=== PATIENT | female | born 1980 | race African-American/Black ===

== ENCOUNTER 2016-09-10 22:20 | Emergency (ER) | payer OTHER ==
[~2016-09-10] VITALS: Ht 167.6 cm; Wt 133.8 kg
[~2016-09-10 22:20] MED LIST: HYDR-971 PO; LISI1TAB5 PO; LOPE2CAP PO; METO25TA9 PO; NIFE30TA2 PO; OMEP20CA9 PO; PREN1TAB58 PO
[2016-09-10] MEDS ORDERED: METO10TA81 PO (23:19)
--- NOTE | 2016-09-10 23:19 | PHYS DOC ---
Past Medical History Past Medical History: A-Fib, GERD, Hypertension Additional Past Medical Histor: Miscarriages Past Surgical History: Cholecystectomy, , Tonsillectomy, Other Additional Past Surgical Histo: ADNOIDS Alcohol Use: Occasionally Drug Use: None Adult General Chief Complaint Chief Complaint: HEADACHE HPI HPI 36-year-old female with a history of migraines presents with a headache. She describes it as a tightness started off behind her eye and is gone into her moravian region down behind her ear. She describes photophobia and phonophobia. She states she has been nauseous with the headache. She denies any lateralizing neurologic weakness. [] Review of Systems Review of Systems Constitutional: Denies fever or chills [] Eyes: Denies change in visual acuity, redness, or eye pain [] HENT: Denies nasal congestion or sore throat [] Respiratory: Denies cough or shortness of breath [] Cardiovascular: No additional information not addressed in HPI [] GI: Denies abdominal pain, nausea, vomiting, bloody stools or diarrhea [] : Denies dysuria or hematuria [] Musculoskeletal: Denies back pain or joint pain [] Integument: Denies rash or skin lesions [] Neurologic: Per history of present illness [] Endocrine: Denies polyuria or polydipsia [] Current Medications Current Medications Current Medications Medications (Trade) Dose Ordered Sig/Amanda Start Time Stop Time Status Last Admin Dose Admin Diphenhydramine HCl (Benadryl) 25 mg 1X ONCE 09/10/16 23:30 09/10/16 23:31 DC 09/10/16 23:43 25 MG Metoclopramide HCl (Reglan) 10 mg 1X ONCE 09/10/16 23:30 09/10/16 23:31 DC 09/10/16 23:42 10 MG Allergies Allergies Allergies Coded Allergies Type Severity Reaction Last Updated Verified No Known Drug Allergies 11/26/13 No Physical Exam Physical Exam Constitutional: Well developed, well nourished, mild distress, non-toxic appearance. [] HENT: Normocephalic, atraumatic, bilateral external ears normal, oropharynx moist, no oral exudates, nose normal. [] Eyes: PERRLA, EOMI, conjunctiva normal, no discharge. [] Neck: Normal range of motion, no tenderness, supple, no stridor. [] Cardiovascular:Heart rate regular rhythm, no murmur [] Lungs & Thorax: Bilateral breath sounds clear to auscultation [] Abdomen: Bowel sounds normal, soft, no tenderness, no masses, no pulsatile masses, gravid uterus nontender. [] Skin: Warm, dry, no erythema, no rash. [] Back: No tenderness, no CVA tenderness. [] Extremities: No tenderness, no cyanosis, no clubbing, ROM intact, no edema. [] Neurologic: Alert and oriented X 3, normal motor function, normal sensory function, no focal deficits noted. [] Psychologic: Affect normal, judgement normal, mood normal. [] Current Patient Data Vital Signs Vital Signs Date Time Temp Pulse Resp B/P Pulse Ox O2 Delivery O2 Flow Rate FiO2 09/10/16 23:30 90 20 115/71 96 Room Air 09/10/16 23:10 98.6 98.6 EKG EKG [] Radiology/Procedures Radiology/Procedures [] Course & Med Decision Making Course & Med Decision Making Pertinent Labs and Imaging studies reviewed. (See chart for details) [] Dragon Disclaimer Dragon Disclaimer This electronic medical record was generated, in whole or in part, using a voice recognition dictation system. Departure Departure Impression: Primary Impression: Migraine headache Referrals: NO PCP (PCP) Patient Instructions: Migraine Headache Additional Instructions: Thank you for allowing us to participate in your care today. Followup with your primary care physician in 3 days if your symptoms do not improve. Return to the emergency department you have any new or concerning findings. This should be evaluated by the primary care physician and any necessary consulting services for continued management within a few days after discharge. Return to emergency room if you have any new or concerning symptoms including but not limited to fever, chills, nausea, vomiting, intractable pain, any new rashes, chest pain, shortness of air, uncontrolled bleeding, difficulty breathing, and/or vision loss. You may have been prescribed medication that can change in your level of thinking and ability to operate machinery. These medications include hydrocodone and Ativan. Also, Benadryl has been known to do this as well. Be sure to check with your pharmacist and ask if the medications you've prescribed can affect your level of consciousness. I recommend not operating heavy machinery or driving while on medication such as these. Scripts Metoclopramide Hcl (Reglan)10 Mg Tablet1 Tab PO Q8HRS PRN migraine #30 TAB Prov:DAVID BLANCO DO 09/10/16 Problem Qualifiers Primary Impression: Migraine headache Migraine type: unspecified Status migrainosus presence: without status migrainosus Intractability: not intractable Qualified Code: G43.909 - Migraine, unspecified, not intractable, without status migrainosus DAVID BLANCO DO Sep 10, 2016 23:19
[2016-09-10 23:30] VITALS: BP 115/71
[2016-09-10] MEDS ORDERED: DIPHENHYDRAMINE 50 MG/ML VIAL IM ONE (23:30)
[2016-09-10] MEDS ORDERED: METOCLOPRAMIDE HCL 10 MG/2 ML VIAL. IM ONE (23:30)
== END 2016-09-10 23:55 | disposition home or self-care (01) ==
LOC: ER 22:20
DX: G43.909 Migraine, unspecified, not intractable, without status migrainosus (principal); I10 Essential (primary) hypertension; I48.91 Unspecified atrial fibrillation
CPT/HCPCS: 96372; 99284; J1200; J2765

== ENCOUNTER 2016-10-27 10:53 | Observation (INO) | payer OTHER ==
[~2016-10-27 10:53] MED LIST changes: +METO10TA81 PO
[2016-10-27] MEDS ORDERED: ONDANSETRON PF 4 MG/2 ML VIAL. IV PRN (12:15)
[2016-10-27] MEDS ORDERED: IV NORMAL SALINE 1000ML BAG 1,000 ML IV ONE (12:15)
[2016-10-27 14:02] VITALS: BP 141/78
[2016-10-27] MEDS ORDERED: OXYCODONE/APAP 5/325 TABLET. PO ONE (14:15)
[2016-10-27] MEDS ORDERED: NIFEDIPINE ER 30 MG TAB.ER.24H PO ONE (15:00)
== END 2016-10-27 17:45 | disposition home or self-care (01) ==
LOC: 3 SO LND 10:53
PROVIDERS: ADMIT Obstetrics & Gynecology; ATTEND Obstetrics & Gynecology
DX: O21.9 Vomiting of pregnancy, unspecified (principal); O26.892 Other specified pregnancy related conditions, second trimester; R11.0 Nausea; R19.7 Diarrhea, unspecified; R51 Headache; Z3A.25 25 weeks gestation of pregnancy
CPT/HCPCS: 96361; 96374; G0378; G0379; J2405; J7030

== ENCOUNTER 2017-06-05 21:00 | Emergency (ER) | payer OTHER ==
[~2017-06-05] VITALS: Ht 167.6 cm; Wt 126.1 kg
[~2017-06-05 21:00] MED LIST changes: +METO-239 PO; -METO25TA9 PO
[2017-06-05] MEDS ORDERED: cloNIDine HCL 0.1 MG TABLET PO ONE (21:45)
--- NOTE | 2017-06-05 22:00 | PHYS DOC ---
Past Medical History Past Medical History: A-Fib, Anemia, GERD, Hypertension, Other Additional Past Medical Histor: Miscarriages Past Surgical History: Cholecystectomy, , Tonsillectomy, Other Additional Past Surgical Histo: ADNOIDS, D&C Alcohol Use: Occasionally Drug Use: None Adult General Chief Complaint Chief Complaint: ABDOMINAL PAIN HPI HPI Patient is a 36 year old F who presents with epigastric pain and a headache for the past 3 days. Patient states that her blood pressures been elevated which is been given her headache with some blurry vision in addition she has epigastric pain with nausea and no vomiting. Patient is a previous cholecystectomy. Patient denies any fevers. Patient denies any chest pain or shortness of breath. Patient has no other complaints. Review of Systems Review of Systems GEN: Denies fevers, chills, sweats HEENT: Blurry vision CV: Denies chest pain RESP: Denies shortness of air, cough GI: Epigastric pain with nausea NEURO: Headache MSK: Denies weakness, joint pain/swelling Current Medications Current Medications Current Medications Medications (Trade) Dose Ordered Sig/Amanda Start Time Stop Time Status Last Admin Dose Admin Clonidine HCl (Catapres) 0.2 mg 1X ONCE 06/05/17 21:45 06/05/17 21:46 DC 06/05/17 22:15 0.2 MG Fentanyl Citrate (Fentanyl 2ml Vial) 50 mcg 1X ONCE 06/05/17 22:45 06/05/17 22:46 DC 06/05/17 22:56 50 MCG Metronidazole 100 ml @ 100 mls/hr 1X ONCE 06/05/17 22:30 06/05/17 22:37 DC Allergies Allergies Allergies Coded Allergies Type Severity Reaction Last Updated Verified No Known Drug Allergies 11/26/13 No Physical Exam Physical Exam GEN.: No apparent distress. Alert and oriented. HEENT: Head is normocephalic, atraumatic NECK: Supple. LUNGS: CTAB. HEART: RRR, S1, S2 present. Peripheral pulses intact ABDOMEN: Soft, mild epigastric tenderness with palpation, no rebound tenderness, no abdominal distention. Positive bowel sounds. EXTREMITIES: Without any cyanosis. NEUROLOGIC: Normal speech, normal tone, cranial nerves II through XII are grossly intact without any focal neurological deficits PSYCHIATRIC: Normal affect, normal mood. SKIN: No ulcerations Current Patient Data Vital Signs Vital Signs Date Time Temp Pulse Resp B/P (MAP) Pulse Ox O2 Delivery O2 Flow Rate FiO2 06/05/17 22:56 Room Air 06/05/17 22:15 90 178/89 06/05/17 21:10 98.6 16 98 98.6 Lab Values Laboratory Tests Test 06/05/17 21:56 06/05/17 21:57 06/05/17 22:00 Urine Collection Type Unknown Urine Color Yellow Urine Clarity Clear Urine pH 8.5 Urine Specific [place] 1.025 Urine Protein 30 mg/dL (NEG-TRACE) Urine Glucose (UA) Negative mg/dL (NEG) Urine Ketones (Stick) Negative mg/dL (NEG) Urine Blood Negative (NEG) Urine Nitrite Negative (NEG) Urine Bilirubin Negative (NEG) Urine Urobilinogen Dipstick 1.0 mg/dL (0.2 mg/dL) Urine Leukocyte Esterase Negative (NEG) Urine RBC 0 /HPF (0-2) Urine WBC Occ /HPF (0-4) Urine Squamous Epithelial Cells Mod /LPF Urine Bacteria Few /HPF (0-FEW) Urine Mucus Mod /LPF POC Urine HCG, Qualitative Hcg negative (Negative) White Blood Count 10.9 x10^3/uL (4.0-11.0) Red Blood Count 4.04 x10^6/uL (3.50-5.40) Hemoglobin 7.5 g/dL (12.0-15.5) L Hematocrit 24.7 % (36.0-47.0) L Mean Corpuscular Volume 61 fL (79-100) L Mean Corpuscular Hemoglobin 19 pg (25-35) L Mean Corpuscular Hemoglobin Concent 30 g/dL (31-37) L Red Cell Distribution Width 17.9 % (11.5-14.5) H Platelet Count 475 x10^3/uL (140-400) H Neutrophils (%) (Auto) 69 % (31-73) Lymphocytes (%) (Auto) 20 % (24-48) L Monocytes (%) (Auto) 7 % (0-9) Eosinophils (%) (Auto) 3 % (0-3) Basophils (%) (Auto) 1 % (0-3) Neutrophils # (Auto) 7.5 x10^3uL (1.8-7.7) Lymphocytes # (Auto) 2.2 x10^3/uL (1.0-4.8) Monocytes # (Auto) 0.8 x10^3/uL (0.0-1.1) Eosinophils # (Auto) 0.3 x10^3/uL (0.0-0.7) Basophils # (Auto) 0.1 x10^3/uL (0.0-0.2) Platelet Estimate Increased (ADEQUATE) Polychromasia Slight Hypochromasia Marked Poikilocytosis Slight Anisocytosis Slight Microcytosis Marked Sodium Level 142 mmol/L (136-145) Potassium Level 3.6 mmol/L (3.5-5.1) Chloride Level 106 mmol/L (98-107) Carbon Dioxide Level 28 mmol/L (21-32) Anion Gap 8 (6-14) Blood Urea Nitrogen 9 mg/dL (7-20) Creatinine 0.7 mg/dL (0.6-1.0) Estimated GFR (Cockcroft-Gault) 113.9 BUN/Creatinine Ratio 13 (6-20) Glucose Level 101 mg/dL (70-99) H Calcium Level 8.9 mg/dL (8.5-10.1) Total Bilirubin 0.2 mg/dL (0.2-1.0) Aspartate Amino Transferase (AST) 17 U/L (15-37) Alanine Aminotransferase (ALT) 18 U/L (14-59) Alkaline Phosphatase 64 U/L (46-116) Total Protein 8.4 g/dL (6.4-8.2) H Albumin 3.4 g/dL (3.4-5.0) Albumin/Globulin Ratio 0.7 (1.0-1.7) L Lipase 371 U/L (73-393) Laboratory Tests 06/05/17 22:00 Laboratory Tests 06/05/17 22:00 EKG EKG [] Radiology/Procedures Radiology/Procedures CT scan of the head without contrast: No acute intracranial process Course & Med Decision Making Course & Med Decision Making Pertinent Labs and Imaging studies reviewed. (See chart for details) ED course: Patient was seen and examined emergency room CBC, CMP, lipase, CT scan of the head without contrast and 0.2 Catapres were given 2250: Resides the patient in which she states her headache is feeling better. Blood pressure systolic is in the 150s. Discussed lab work with the patient and discussed her anemia. Patient states she has a history of anemia. Patient states that over the past couple months she's had heavy periods and recommended patient be admitted the hospital for serial hemoglobins. Patient declined admission under seen all risks including and disability. 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 Recommended she follow the PCP to further evaluate her headaches and get her blood pressure under control. MDM: After reviewing the chart, CC/HPI/PMH, physical exam, [lab results], [ radiological results], I do not believe the patient has acute intracranial process warranting further workup and/or emergent neurosurgical consultation. I do not believe the patient has intra-abdominal process warranting a CT scan at this time. I did recommend the patient follow up with PCP to have a potential upper GI scope done. Patient does have severe anemia and recommended admission to the hospital for further evaluation of her anemia however she declined understanding all risks and and disability. Patient will be discharged with understand that she can return anytime for further evaluation and management. Additional verbal discharge instructions were provided to the patient and that if symptoms get worse or any new symptoms arise that are worrisome to the patient she is to return to the emergency room immediately [] Dragon Disclaimer Dragon Disclaimer This electronic medical record was generated, in whole or in part, using a voice recognition dictation system. Departure Departure Impression: Primary Impression: Hypertension Additional Impressions: Anemia Headache Disposition: 01 HOME, SELF-CARE Condition: IMPROVED Referrals: REENA VARELA MD (PCP) Patient Instructions: Hypertension, Iron Deficiency Anemia Additional Instructions: Please follow-up with your family physician in the next one to 2 days for your anemia and her headache. Return if symptoms increase Scripts Butalb/Acetaminophen/Caffeine ([id number] CP) 1 Each Capsule 1 EACH PO Q6-8HRS Y for PAIN for 3 Days, #12 CAP Prov: TYE KERR DO 06/05/17 Problem Qualifiers TYE KERR DO Jun 05, 2017 22:00
[2017-06-05 22:04] LABS: BILIRUBIN,URINE NEGATIVE (NEG); GLUCOSE,URINE NEGATIVE (NEG); NITRITE,URINE NEGATIVE (NEG); PH,URINE 8.5; PROTEIN,URINE 30 mg/dL (NEG-TRACE)
[2017-06-05 22:08] LABS: BASO # 0.1 x10^3/uL (0.0-0.2); BASO % 1 % (0-3); EOS % 3 % (0-3); HEMATOCRIT 24.7 % (36.0-47.0); HEMOGLOBIN 7.5 g/dL (12.0-15.5); LYMPH # 2.2 x10^3/uL (1.0-4.8); LYMPH % 20 % (24-48); MEAN CORPUSCULAR HEMOGLOBIN 19 pg (25-35); MEAN CORPUSCULAR HGB CONC 30 g/dL (31-37); MEAN CORPUSCULAR VOLUME 61 fL (79-100); MONO % 7 % (0-9); NEUT % 69 % (31-73); PLATELET COUNT 475 x10^3/uL (140-400); RED BLOOD COUNT 4.04 x10^6/uL (3.50-5.40); RED CELL DISTRIBUTION WIDTH 17.9 % (11.5-14.5); WHITE BLOOD COUNT 10.9 x10^3/uL (4.0-11.0)
[2017-06-05 22:08] LABS: BACTERIA,URINE FEW /HPF (0-FEW); RBC,URINE 0 /HPF (0-2); SQUAMOUS EPITHELIAL CELL,UR MOD /LPF; WBC,URINE OCC /HPF (0-4)
--- NOTE | 2017-06-05 22:22 | RAD ---
CT head without intravenous contrast History: Headache, hypertension. Comparison: None. Technique: Axial images are obtained of the head from the skull base through the vertex without IV contrast. Exposure: One or more of the following individualized dose reduction techniques were utilized for this examination: 1. Automated exposure control 2. Adjustment of the mA and/or kV according to patient size 3. Use of iterative reconstruction technique Findings: The ventricles are appropriate in size, shape, and location for the patient's age. No obvious intracranial mass, mass-effect, midline shift, hemorrhage or obvious acute infarction is identified. Basilar cisterns are patent. Bone windows demonstrate no acute calvarial abnormality. The visualized paranasal sinuses appear clear. Impression: 1. No acute intracranial process. Electronically signed by: Nabil Haskins MD (06/05/2017 10:18 PM) [facility]
[2017-06-05 22:30] LABS: CALCIUM 8.9 mg/dL (8.5-10.1); CREATININE 0.7 mg/dL (0.6-1.0); GFR 113.9; POTASSIUM 3.6 mmol/L (3.5-5.1)
[2017-06-05 22:36] LABS: ALBUMIN 3.4 g/dL (3.4-5.0); ALBUMIN/GLOBULIN RATIO 0.7 (1.0-1.7); TOTAL BILIRUBIN 0.2 mg/dL (0.2-1.0); TOTAL PROTEIN 8.4 g/dL (6.4-8.2)
[2017-06-05 22:37] LABS: PLT ESTIMATE INCREASED (ADEQUATE)
[2017-06-05 22:38] LABS: ANISOCYTOSIS SLIGHT; HYPOCHROMIA MARKED; MICROCYTOSIS MARKED; POIKILOCYTOSIS SLIGHT
[2017-06-05 22:39] LABS: POLYCHROMASIA SLIGHT
[2017-06-05] MEDS ORDERED: fentaNYL PF VIAL 100 MCG/2 ML VIAL IV ONE (22:45)
[2017-06-05] MEDS ORDERED: BUTA1CAP27 PO (23:44)
[2017-06-06] VITALS: BP 137/83
== END 2017-06-05 23:50 | disposition home or self-care (01) ==
LOC: ER 21:00
DX: R51 Headache (principal); D64.9 Anemia, unspecified; I10 Essential (primary) hypertension; R10.13 Epigastric pain; R11.0 Nausea; K21.9 Gastro-esophageal reflux disease without esophagitis; I48.91 Unspecified atrial fibrillation; Z90.49 Acquired absence of other specified parts of digestive tract
CPT/HCPCS: 36415; 70450; 80053; 81001; 81025; 83690; 85025; 96374; 99285; J3010

== ENCOUNTER 2018-01-28 00:19 | Emergency (ER) | payer OTHER ==
[2018-01-28] MEDS: LORazepam 1 MG TABLET PO (01:17)
[2018-01-28] MEDS: LABETALOL HCL 100 MG TABLET. PO (01:17)
[2018-01-28] MEDS: DIPHTH,PERTUSS(ACELL),TET TOX 0.5 ML DISP.SYRIN. VAX IM (01:19)
[2018-01-28] MEDS: LIDOCAINE 1%/EPI 1:100,000 30 ML VIAL. IJ (01:20)
[2018-01-28 01:38] LABS: URINE HCG POC HCG NEGATIVE (Negative)
[2018-01-28] MEDS: HYDROcodone/APAP 5/325MG 1 TAB TABLET PO (06:01)
== END 2018-01-28 06:39 | disposition home or self-care (01) ==
LOC: ER 00:19
DX: S01.112A Laceration without foreign body of left eyelid and periocular area, initial encounter (principal); S00.03XA Contusion of scalp, initial encounter; S00.83XA Contusion of other part of head, initial encounter; S05.12XA Contusion of eyeball and orbital tissues, left eye, initial encounter; S50.12XA Contusion of left forearm, initial encounter; J39.2 Other diseases of pharynx; I10 Essential (primary) hypertension; K21.9 Gastro-esophageal reflux disease without esophagitis; I48.91 Unspecified atrial fibrillation; Y04.0XXA Assault by unarmed brawl or fight, initial encounter; Y93.89 Activity, other specified; Y99.8 Other external cause status; Y92.89 Other specified places as the place of occurrence of the external cause
CPT/HCPCS: 70450; 70486; 72125; 81025; 90471; 90715; 99284-25; J3490

== ENCOUNTER 2018-06-13 22:34 | Emergency (ER) | payer OTHER ==
[~2018-06-13] VITALS: Ht 167.6 cm; Wt 124.7 kg
[~2018-06-13 22:34] MED LIST changes: +ACET500T68 PO; +ALPR0.25 PO; +BUTA1CAP27 PO; +FURO-69 PO; +LISI-130 PO; +MECL-51 PO; +METO50TA6 PO; +NEOM28.32 TP; +ZOLP10TA PO
[2018-06-14] MEDS ORDERED: LIDO:MAALOX 1:1 20 ML SINGLE DOSE. SWSW ONE
[2018-06-14 00:28] LABS: BASO % 0 % (0-3); EOS # 0.2 x10^3/uL (0.0-0.7); EOS % 3 % (0-3); HEMATOCRIT 26.9 % (36.0-47.0); HEMOGLOBIN 8.4 g/dL (12.0-15.5); LYMPH # 2.3 x10^3/uL (1.0-4.8); LYMPH % 25 % (24-48); MEAN CORPUSCULAR HEMOGLOBIN 18 pg (25-35); MEAN CORPUSCULAR HGB CONC 31 g/dL (31-37); MEAN CORPUSCULAR VOLUME 59 fL (79-100); MONO # 0.7 x10^3/uL (0.0-1.1); MONO % 8 % (0-9); NEUT # 6.1 x10^3uL (1.8-7.7); NEUT % 65 % (31-73); PLATELET COUNT 421 x10^3/uL (140-400); RED BLOOD COUNT 4.57 x10^6/uL (3.50-5.40); RED CELL DISTRIBUTION WIDTH 20.4 % (11.5-14.5); WHITE BLOOD COUNT 9.4 x10^3/uL (4.0-11.0)
[2018-06-14 00:36] LABS: CALCIUM 9.1 mg/dL (8.5-10.1); CREATININE 0.8 mg/dL (0.6-1.0); GFR 97.1; POTASSIUM 3.8 mmol/L (3.5-5.1)
[2018-06-14 00:42] LABS: ALBUMIN 3.3 g/dL (3.4-5.0); ALBUMIN/GLOBULIN RATIO 0.7 (1.0-1.7); TOTAL BILIRUBIN 0.2 mg/dL (0.2-1.0); TOTAL PROTEIN 8.3 g/dL (6.4-8.2)
[2018-06-14 00:59] LABS: BILIRUBIN,URINE NEGATIVE (NEG); CLARITY,URINE CLOUDY; COLOR,URINE YELLOW; NITRITE,URINE NEGATIVE (NEG); PH,URINE 7.5; PROTEIN,URINE 100 mg/dL (NEG-TRACE); UROBILINOGEN,URINE 0.2 mg/dL (0.2 mg/dL)
[2018-06-14] MEDS ORDERED: ONDA4TAB10 SL (01:12)
[2018-06-14] MEDS ORDERED: BUTALB/APAP/CAFEIN 50/325/40MG TABLET. PO PRN (01:15)
--- NOTE | 2018-06-14 01:16 | PHYS DOC ---
Past Medical History Past Medical History: A-Fib, Anemia, GERD, Hypertension, Other Additional Past Medical Histor: Miscarriages Past Surgical History: Cholecystectomy, , Tonsillectomy, Other Additional Past Surgical Histo: ADENOIDS, D&C Alcohol Use: Heavy Drug Use: None Adult General Chief Complaint Chief Complaint: MULTIPLE COMPLAINTS [facility] HPI Patient is a 37 year old female who presents with multiple complaints. She states that she has been having some nausea and vomiting that started today along with epigastric pain. The patient does have a diagnosis of acid reflux. She has also having an abnormally long menstrual cycle. She has hemorrhoids. She states that she noticed some bright red blood in her stool. She is also complaining of a headache. She denies fever. Review of Systems Review of Systems Constitutional: Denies fever or chills [] Eyes: Denies change in visual acuity, redness, or eye pain [] HENT: Denies nasal congestion or sore throat [] Respiratory: Denies cough or shortness of breath [] Cardiovascular: No additional information not addressed in HPI [] GI: See history of present illness : Denies dysuria or hematuria [] Musculoskeletal: Denies back pain or joint pain [] Integument: Denies rash or skin lesions [] Neurologic: Denies headache, focal weakness or sensory changes [] Endocrine: Denies polyuria or polydipsia [] All other systems were reviewed and found to be within normal limits, except as documented in this note. Current Medications Current Medications Current Medications Medications (Trade) Dose Ordered Sig/Amanda Start Time Stop Time Status Last Admin Dose Admin Acetaminophen/ Butalbital/ Caffeine (Fioricet) 1 tab PRN Q6HRS PRN 06/14/18 01:15 06/14/18 03:25 DC 06/14/18 01:28 1 TAB Clonidine HCl (Catapres) 0.1 mg 1X ONCE 06/14/18 03:00 06/14/18 03:02 DC 06/14/18 02:53 0.1 MG Famotidine (Pepcid) 20 mg 1X ONCE 06/14/18 03:00 06/14/18 03:02 DC 06/14/18 02:52 20 MG Lorazepam (Ativan) 1 mg 1X ONCE 06/14/18 03:00 06/14/18 03:02 DC 06/14/18 02:52 1 MG Multi-Ingredient Mouthwash/Gargle (Gi Cocktail) 20 ml 1X ONCE 06/14/18 00:00 06/14/18 00:01 DC 06/13/18 23:54 20 ML Allergies Allergies Allergies Coded Allergies Type Severity Reaction Last Updated Verified No Known Drug Allergies 11/14/17 No Physical Exam Physical Exam Constitutional: Well developed, well nourished, no acute distress, non-toxic appearance. [] HENT: Normocephalic, atraumatic, bilateral external ears normal, oropharynx moist, no oral exudates, nose normal. [] Eyes: PERRLA, EOMI, conjunctiva normal, no discharge. [] Neck: Normal range of motion, no tenderness, supple, no stridor. [] Cardiovascular:Heart rate regular rhythm, no murmur [] Lungs & Thorax: Bilateral breath sounds clear to auscultation [] Abdomen: Bowel sounds normal, soft, mild epigastric tenderness, no masses, no pulsatile masses. [] Skin: Warm, dry, no erythema, no rash. [] Neurologic: Alert and oriented X 3, normal motor function, normal sensory function, no focal deficits noted. [] Psychologic: Affect normal, judgement normal, mood normal. [] Physical exam: Dr. Chen Constitutional: Well developed, well nourished, no acute distress, non-toxic appearance. [] HENT: Normocephalic, atraumatic Eyes: PERRL, EOMI, conjunctiva normal, no discharge. [] Neck: Normal range of motion, no tenderness, supple, no meningeal signs Skin: Warm, dry, no erythema, no rash. [] Neurologic: Alert and oriented X 3, normal motor function, normal sensory function, no focal deficits noted. [] Psychologic: Affect normal, judgement normal, mood normal. [] Current Patient Data Vital Signs Vital Signs Date Time Temp Pulse Resp B/P (MAP) Pulse Ox O2 Delivery O2 Flow Rate FiO2 06/14/18 02:53 85 224/148 06/13/18 23:00 99.7 16 100 Room Air 99.7 Lab Values Laboratory Tests Test 06/13/18 00:15 06/13/18 23:33 06/13/18 23:43 White Blood Count 9.4 x10^3/uL (4.0-11.0) Red Blood Count 4.57 x10^6/uL (3.50-5.40) Hemoglobin 8.4 g/dL (12.0-15.5) L Hematocrit 26.9 % (36.0-47.0) L Mean Corpuscular Volume 59 fL (79-100) L Mean Corpuscular Hemoglobin 18 pg (25-35) L Mean Corpuscular Hemoglobin Concent 31 g/dL (31-37) Red Cell Distribution Width 20.4 % (11.5-14.5) H Platelet Count 421 x10^3/uL (140-400) H Neutrophils (%) (Auto) 65 % (31-73) Lymphocytes (%) (Auto) 25 % (24-48) Monocytes (%) (Auto) 8 % (0-9) Eosinophils (%) (Auto) 3 % (0-3) Basophils (%) (Auto) 0 % (0-3) Neutrophils # (Auto) 6.1 x10^3uL (1.8-7.7) Lymphocytes # (Auto) 2.3 x10^3/uL (1.0-4.8) Monocytes # (Auto) 0.7 x10^3/uL (0.0-1.1) Eosinophils # (Auto) 0.2 x10^3/uL (0.0-0.7) Basophils # (Auto) 0.0 x10^3/uL (0.0-0.2) Platelet Estimate Adequate (ADEQUATE) Hypochromasia Slight Anisocytosis Mod Microcytosis Marked Sodium Level 141 mmol/L (136-145) Potassium Level 3.8 mmol/L (3.5-5.1) Chloride Level 104 mmol/L (98-107) Carbon Dioxide Level 27 mmol/L (21-32) Anion Gap 10 (6-14) Blood Urea Nitrogen 15 mg/dL (7-20) Creatinine 0.8 mg/dL (0.6-1.0) Estimated GFR (Cockcroft-Gault) 97.1 BUN/Creatinine Ratio 19 (6-20) Glucose Level 94 mg/dL (70-99) Calcium Level 9.1 mg/dL (8.5-10.1) Total Bilirubin 0.2 mg/dL (0.2-1.0) Aspartate Amino Transferase (AST) 17 U/L (15-37) Alanine Aminotransferase (ALT) 16 U/L (14-59) Alkaline Phosphatase 62 U/L (46-116) Total Protein 8.3 g/dL (6.4-8.2) H Albumin 3.3 g/dL (3.4-5.0) L Albumin/Globulin Ratio 0.7 (1.0-1.7) L Urine Collection Type Unknown Urine Color Yellow Urine Clarity Cloudy Urine pH 7.5 Urine Specific [place] >=1.030 Urine Protein 100 mg/dL (NEG-TRACE) Urine Glucose (UA) Negative mg/dL (NEG) Urine Ketones (Stick) Negative mg/dL (NEG) Urine Blood Large (NEG) Urine Nitrite Negative (NEG) Urine Bilirubin Negative (NEG) Urine Urobilinogen Dipstick 0.2 mg/dL (0.2 mg/dL) Urine Leukocyte Esterase Negative (NEG) Urine RBC 3-5 /HPF (0-2) Urine WBC 1-4 /HPF (0-4) Urine Squamous Epithelial Cells Many /LPF Urine Bacteria Moderate /HPF (0-FEW) Urine Mucus Mod /LPF POC Urine HCG, Qualitative Hcg negative (Negative) Laboratory Tests 06/13/18 00:15 Laboratory Tests 06/13/18 00:15 Microbiology 06/14/18 Urine Culture - Final, Complete 06/14/18 Urine Culture Result 1 (KEVYN) - Final, Complete EKG EKG [] Radiology/Procedures Radiology/Procedures [] Course & Med Decision Making Course & Med Decision Making Pertinent Labs and Imaging studies reviewed. (See chart for details) []Patient was given Fioricet in the emergency department for her headache. She was given a GI cocktail to control her acid reflux symptoms. That pain has resolved and she is now drinking water. Dragon Disclaimer Dragon Disclaimer This electronic medical record was generated, in whole or in part, using a voice recognition dictation system. Departure Departure Impression: Primary Impression: Abdominal pain Additional Impressions: Nausea & vomiting Headache Hypertension GERD (gastroesophageal reflux disease) Metrorrhagia Disposition: 01 HOME, SELF-CARE Condition: STABLE Referrals: NO PCP (PCP) PANFILO EVANS MD Patient Instructions: Gastritis, Adult, [id number], General Headache Without Cause, Hypertension, [id number], Metrorrhagia, [id number], Nausea and Vomiting Additional Instructions: Take the medication as directed. Follow-up with your primary care provider in 3 days for recheck. If worsening return to the emergency department. Scripts Labetalol Hcl (LABETALOL HCL) 100 Mg Tablet 1 TAB PO BID, #20 TAB 0 Refills Prov: JOE CHEN DO 06/14/18 Famotidine (PEPCID) 20 Mg Tablet 20 MG PO BID, #20 TAB Prov: JOE CHEN DO 06/14/18 Nifedipine (NIFEDIPINE ER) 30 Mg Tab.er.24 1 TAB PO DAILY, #10 TAB 0 Refills Prov: JEO CHEN DO 06/14/18 Ondansetron (ZOFRAN ODT) 4 Mg Tab.rapdis 1 TAB SL Q8HRS, #10 TAB Prov: MARIBETH HENDRICKS APRN 06/14/18 Attending Signature Attending Signature Patient initially discharged by Maribeth. Patient reports concern given elevated blood pressure. Patient stable. Requesting refills of her blood pressure medications. I have personally interviewed and examined the patient. All charts, labs, and imaging studies were reviewed. I agree with the PA/COPING MACHINE OPERATOR's findings, exam, and plan. Problem Qualifiers Primary Impression: Abdominal pain Abdominal location: epigastric Qualified Codes: R10.13 - Epigastric pain Additional Impressions: Nausea & vomiting Vomiting type: unspecified Vomiting Intractability: non-intractable Qualified Codes: R11.2 - Nausea with vomiting, unspecified Headache Headache type: unspecified Headache chronicity pattern: acute headache Intractability: not intractable Qualified Codes: R51 - Headache Hypertension Hypertension type: unspecified Qualified Codes: I10 - Essential (primary) hypertension GERD (gastroesophageal reflux disease) Esophagitis presence: without esophagitis Qualified Codes: K21.9 - Gastro- esophageal reflux disease without esophagitis MARIBETH HENDRICKS APRN Jun 14, 2018 01:16 JOE CHEN DO Jun 14, 2018 02:46
[2018-06-14 01:17] LABS: BACTERIA,URINE MODERATE /HPF (0-FEW); SQUAMOUS EPITHELIAL CELL,UR MANY /LPF
[2018-06-14 02:09] LABS: ANISOCYTOSIS MOD; HYPOCHROMIA SLIGHT; MICROCYTOSIS MARKED; PLT ESTIMATE ADEQUATE (ADEQUATE)
[2018-06-14] MEDS ORDERED: NIFE30TA17 PO (02:46)
[2018-06-14] MEDS ORDERED: LABE100T5 PO (02:46)
[2018-06-14] MEDS ORDERED: FAMO-63 PO (02:46)
[2018-06-14 02:53] VITALS: BP 224/148
[2018-06-14] MEDS ORDERED: LORazepam 1 MG TABLET PO ONE (03:00)
[2018-06-14] MEDS ORDERED: FAMOTIDINE 20 MG TABLET. PO ONE (03:00)
[2018-06-14] MEDS ORDERED: cloNIDine HCL 0.1 MG TABLET PO ONE (03:00)
== END 2018-06-14 02:55 | disposition home or self-care (01) ==
LOC: ER 22:34
DX: K21.9 Gastro-esophageal reflux disease without esophagitis (principal); R51 Headache; I10 Essential (primary) hypertension; N92.1 Excessive and frequent menstruation with irregular cycle; I48.91 Unspecified atrial fibrillation; F10.20 Alcohol dependence, uncomplicated; Y90.9 Presence of alcohol in blood, level not specified; Z90.49 Acquired absence of other specified parts of digestive tract
CPT/HCPCS: 36415; 80053; 81001; 81025; 85025; 87086; 99284

== ENCOUNTER 2018-10-17 20:21 | Emergency (ER) | payer OTHER ==
[~2018-10-17] VITALS: Ht 167.6 cm; Wt 122.5 kg
[~2018-10-17 20:21] MED LIST changes: +FAMO-63 PO; +HYDR-3164 PO; -HYDR-971 PO; +LABE100T5 PO; +NIFE30TA15 PO; +NIFE30TA17 PO; +OMEP20CA10 PO; -OMEP20CA9 PO; +ONDA4TAB10 SL; +PANT20TA2 PO
[2018-10-17 21:27] LABS: BASO % 0 % (0-3); EOS # 0.2 x10^3/uL (0.0-0.7); EOS % 2 % (0-3); HEMATOCRIT 25.5 % (36.0-47.0); HEMOGLOBIN 7.5 g/dL (12.0-15.5); LYMPH % 17 % (24-48); MEAN CORPUSCULAR HEMOGLOBIN 17 pg (25-35); MEAN CORPUSCULAR HGB CONC 29 g/dL (31-37); MEAN CORPUSCULAR VOLUME 57 fL (79-100); MONO % 9 % (0-9); NEUT # 8.6 x10^3uL (1.8-7.7); NEUT % 72 % (31-73); PLATELET COUNT 371 x10^3/uL (140-400); RED BLOOD COUNT 4.48 x10^6/uL (3.50-5.40); RED CELL DISTRIBUTION WIDTH 20.1 % (11.5-14.5); WHITE BLOOD COUNT 11.9 x10^3/uL (4.0-11.0)
[2018-10-17 21:39] LABS: CALCIUM 8.3 mg/dL (8.5-10.1); CREATININE 0.6 mg/dL (0.6-1.0); GFR 134.7; POTASSIUM 3.8 mmol/L (3.5-5.1)
[2018-10-17 21:45] LABS: ALBUMIN 2.8 g/dL (3.4-5.0); ALBUMIN/GLOBULIN RATIO 0.6 (1.0-1.7); MAGNESIUM 1.6 mg/dL (1.8-2.4); TOTAL BILIRUBIN 0.3 mg/dL (0.2-1.0); TOTAL PROTEIN 7.6 g/dL (6.4-8.2)
[2018-10-17 21:58] LABS: CREATINE KINASE 113 U/L (26-192)
[2018-10-17] MEDS ORDERED: IV NORMAL SALINE 1000ML BAG 1,000 ML IV ONE (22:00)
[2018-10-17] MEDS ORDERED: BUTALB/APAP/CAFEIN 50/325/40MG TABLET. PO ONE (22:00)
[2018-10-17] MEDS ORDERED: ONDANSETRON PF 4 MG/2 ML VIAL. IV ONE (22:00)
[2018-10-17] MEDS ORDERED: LABETALOL 20 MG/4 ML DISP.SYRIN. IVP ONE ×2 (22:00→23:30)
[2018-10-17] MEDS ORDERED: DEXAMETHASONE SOD PHOS 20 MG/5 ML VIAL. IV ONE (22:00)
[2018-10-17 22:02] LABS: ANISOCYTOSIS MOD; HYPOCHROMIA MARKED; MICROCYTOSIS MARKED; OVALOCYTES MOD; PLT ESTIMATE ADEQUATE (ADEQUATE); POLYCHROMASIA SLIGHT; SCHISTOCYTES FEW; TARGET CELLS OCC
[2018-10-17 22:15] LABS: BILIRUBIN,URINE NEGATIVE (NEG); CLARITY,URINE CLEAR; COLOR,URINE YELLOW; NITRITE,URINE NEGATIVE (NEG); PH,URINE 8.5; PROTEIN,URINE 30 mg/dL (NEG-TRACE)
[2018-10-17 22:24] LABS: BACTERIA,URINE FEW /HPF (0-FEW); SQUAMOUS EPITHELIAL CELL,UR MANY /LPF; WBC,URINE >40 /HPF (0-4)
[2018-10-17 22:25] LABS: YEAST,URINE PRESENT /HPF
[2018-10-17] MEDS ORDERED: diphenhydrAMINE 50 MG/ML VIAL IVP ONE (23:30)
[2018-10-17] MEDS ORDERED: cefTRIAXone IV Push 1 GM VIAL. IVP ONE (23:30)
[2018-10-17] MEDS ORDERED: METOCLOPRAMIDE HCL 10 MG/2 ML VIAL. IV ONE (23:30)
[2018-10-17 23:45] VITALS: BP 181/99
[2018-10-17] MEDS ORDERED: CEPH-264 PO (23:45)
[2018-10-17] MEDS ORDERED: NIFE30TA17 PO (23:45)
[2018-10-17] MEDS ORDERED: BUTA1TAB23 PO (23:45)
[2018-10-17] MEDS ORDERED: ONDA4TAB12 PO (23:45)
--- NOTE | 2018-10-17 23:45 | PHYS DOC ---
Past Medical History Past Medical History: GERD, Hypertension Additional Past Medical Histor: Miscarriages, kong's palsy x 3, vertigo Past Surgical History: Cholecystectomy, , Tonsillectomy, Other Additional Past Surgical Histo: ADENOIDS, D&C Alcohol Use: None Drug Use: None Adult General Chief Complaint Chief Complaint: HYPERTENSION HPI HPI 38 yo female presents in with reports of headache and elevated blood pressure. Reports history of known HTN. Reports she is currently and was switched recently to new blood pressure mediation. Patient denies fever/ chills. Denies vaginal bleeding or discharge. Denies fever. Review of Systems Review of Systems Constitutional: Denies fever or chills [] Eyes: Denies change in visual acuity, redness, or eye pain [] HENT: Denies nasal congestion or sore throat [] Respiratory: Denies cough or shortness of breath [] Cardiovascular: Denies chest pain or palpations GI: Denies abdominal pain, nausea, vomiting, or diarrhea [] : Denies dysuria or hematuria [] Musculoskeletal: Denies back pain or joint pain [] Integument: Denies rash or skin lesions [] Neurologic: Reports headache, denies focal weakness or sensory changes [] Complete systems were reviewed and found to be within normal limits, except as documented in this note. Current Medications Current Medications Current Medications Medications (Trade) Dose Ordered Sig/Amanda Start Time Stop Time Status Last Admin Dose Admin Acetaminophen/ Butalbital/ Caffeine (Fioricet) 1 tab 1X ONCE 10/17/18 22:00 10/17/18 22:01 DC 10/17/18 21:59 1 TAB Ceftriaxone Sodium (Rocephin) 1 gm 1X ONCE 10/17/18 23:30 10/17/18 23:31 DC 10/17/18 23:15 1 GM Dexamethasone Sodium Phosphate (Decadron) 10 mg 1X ONCE 10/17/18 22:00 10/17/18 22:01 DC 10/17/18 21:35 10 MG Diphenhydramine HCl (Benadryl) 50 mg 1X ONCE 10/17/18 23:30 10/17/18 23:31 DC 10/17/18 23:20 50 MG Labetalol HCl (Normodyne Iv Push) 10 mg 1X ONCE 10/17/18 23:30 10/17/18 23:31 DC 10/17/18 23:20 10 MG Metoclopramide HCl (Reglan Vial) 10 mg 1X ONCE 10/17/18 23:30 10/17/18 23:31 DC 10/17/18 23:20 10 MG Nifedipine (Procardia Xl) 30 mg DAILY 10/17/18 22:00 10/17/18 23:59 DC 10/17/18 21:36 30 MG Ondansetron HCl (Zofran) 4 mg 1X ONCE 10/17/18 22:00 10/17/18 22:01 DC 10/17/18 21:34 4 MG Sodium Chloride 1,000 ml @ 1,000 mls/hr 1X ONCE 10/17/18 22:00 10/17/18 22:59 DC 10/17/18 21:34 1,000 MLS/HR Allergies Allergies Allergies Coded Allergies Type Severity Reaction Last Updated Verified No Known Drug Allergies 11/14/17 No Physical Exam Physical Exam Constitutional: Well developed, well nourished, no acute distress, non-toxic appearance. [] HENT: Normocephalic, atraumatic, oropharynx moist Eyes: PERRL, EOMI, conjunctiva normal, no discharge. [] Neck: Normal range of motion, no tenderness, supple Cardiovascular: Heart rate regular rhythm, no murmur [] Lungs & Thorax: Bilateral breath sounds clear to auscultation [] Abdomen: Soft, no tenderness Skin: Warm, dry, no erythema, no rash. [] Extremities: No calf tenderness, ROM intact, no edema. [] Neurologic: Alert and oriented X 3, , no focal deficits noted. [] Psychologic: Affect normal, judgement normal, mood normal. [] Current Patient Data Vital Signs Vital Signs Date Time Temp Pulse Resp B/P (MAP) Pulse Ox O2 Delivery O2 Flow Rate FiO2 10/17/18 23:45 96 16 96 10/17/18 23:20 196/92 10/17/18 20:27 98.2 Room Air 98.2 Lab Values Laboratory Tests Test 10/17/18 21:10 10/17/18 22:00 White Blood Count 11.9 x10^3/uL (4.0-11.0) H Red Blood Count 4.48 x10^6/uL (3.50-5.40) Hemoglobin 7.5 g/dL (12.0-15.5) L Hematocrit 25.5 % (36.0-47.0) L Mean Corpuscular Volume 57 fL (79-100) L Mean Corpuscular Hemoglobin 17 pg (25-35) L Mean Corpuscular Hemoglobin Concent 29 g/dL (31-37) L Red Cell Distribution Width 20.1 % (11.5-14.5) H Platelet Count 371 x10^3/uL (140-400) Neutrophils (%) (Auto) 72 % (31-73) Lymphocytes (%) (Auto) 17 % (24-48) L Monocytes (%) (Auto) 9 % (0-9) Eosinophils (%) (Auto) 2 % (0-3) Basophils (%) (Auto) 0 % (0-3) Neutrophils # (Auto) 8.6 x10^3uL (1.8-7.7) H Lymphocytes # (Auto) 2.0 x10^3/uL (1.0-4.8) Monocytes # (Auto) 1.0 x10^3/uL (0.0-1.1) Eosinophils # (Auto) 0.2 x10^3/uL (0.0-0.7) Basophils # (Auto) 0.0 x10^3/uL (0.0-0.2) Platelet Estimate Adequate (ADEQUATE) Polychromasia Slight Hypochromasia Marked Anisocytosis Mod Microcytosis Marked Target Cells Occ Ovalocytes Mod Schistocytes Few Sodium Level 138 mmol/L (136-145) Potassium Level 3.8 mmol/L (3.5-5.1) Chloride Level 106 mmol/L (98-107) Carbon Dioxide Level 24 mmol/L (21-32) Anion Gap 8 (6-14) Blood Urea Nitrogen 9 mg/dL (7-20) Creatinine 0.6 mg/dL (0.6-1.0) Estimated GFR (Cockcroft-Gault) 134.7 BUN/Creatinine Ratio 15 (6-20) Glucose Level 95 mg/dL (70-99) Calcium Level 8.3 mg/dL (8.5-10.1) L Magnesium Level 1.6 mg/dL (1.8-2.4) L Total Bilirubin 0.3 mg/dL (0.2-1.0) Aspartate Amino Transferase (AST) 15 U/L (15-37) Alanine Aminotransferase (ALT) 10 U/L (14-59) L Alkaline Phosphatase 67 U/L (46-116) Creatine Kinase 113 U/L (26-192) Creatine Kinase MB (Mass) < 0.5 ng/mL (0.0-3.6) Creatine Kinase MB Relative Index % (0-4) Troponin I Quantitative < 0.017 ng/mL (0.000-0.055) Total Protein 7.6 g/dL (6.4-8.2) Albumin 2.8 g/dL (3.4-5.0) L Albumin/Globulin Ratio 0.6 (1.0-1.7) L Urine Collection Type Unknown Urine Color Yellow Urine Clarity Clear Urine pH 8.5 Urine Specific [place] 1.025 Urine Protein 30 mg/dL (NEG-TRACE) Urine Glucose (UA) Negative mg/dL (NEG) Urine Ketones (Stick) Negative mg/dL (NEG) Urine Blood Negative (NEG) Urine Nitrite Negative (NEG) Urine Bilirubin Negative (NEG) Urine Urobilinogen Dipstick 1.0 mg/dL (0.2 mg/dL) Urine Leukocyte Esterase Moderate (NEG) Urine RBC 3-5 /HPF (0-2) Urine WBC >40 /HPF (0-4) Urine Squamous Epithelial Cells Many /LPF Urine Bacteria Few /HPF (0-FEW) Urine Mucus Mod /LPF Urine Yeast Present /HPF Laboratory Tests 10/17/18 21:10 Laboratory Tests 10/17/18 21:10 Microbiology 10/17/18 Urine Culture - Final, Complete 10/17/18 Urine Culture Result 1 (KEVYN) - Final, Complete EKG EKG @2151 NSR at 93bpm, NO ST elevation Radiology/Procedures Radiology/Procedures [] Course & Med Decision Making Course & Med Decision Making Pertinent Lab studies reviewed. (See chart for details) Neurologically intact patients in with report of elevated blood pressure and headache. Patient with pmh of HTN. Reports is supposed to be taking medication but hasn't recently. Labs obtained and posted to chart. Headache and HTN addressed with interval improvement. Patient stable for discharge home with close outpatient follow-up with PCP. Discussed findings and plan with patient, who acknowledges understanding and agreement. Dragon Disclaimer Dragon Disclaimer This electronic medical record was generated, in whole or in part, using a voice recognition dictation system. Departure Departure Impression: Primary Impression: Headache Additional Impressions: Urinary tract infection Hypertension Disposition: 01 HOME, SELF-CARE Condition: STABLE Referrals: UNKNOWN PCP NAME (PCP) Patient Instructions: ABCs of , Headache, FAQs, Hypertension During , [id number], Urinary Tract Infection, Whfs-[id number] Scripts Nifedipine (NIFEDIPINE ER) 30 Mg Tab.er.24 1 TAB PO DAILY, #20 TAB Prov: JOE CHEN DO 10/17/18 Cephalexin (KEFLEX) 500 Mg Capsule 500 MG PO TID for 7 Days, #21 CAP Prov: JOE CHEN DO 10/17/18 Butalb/Acetaminophen/Caffeine (TMXKYA-DAZACMHC-TQZO 50-325-40) 1 Each Tablet 1 EACH PO Q6HRS PRN for HEADACHE, #10 TAB Prov: JOE CHEN DO 10/17/18 Ondansetron (ONDANSETRON ODT) 4 Mg Tab.rapdis 1 TAB PO PRN Q6-8HRS for VOMITING, #16 TAB Prov: JOE CHEN DO 10/17/18 Problem Qualifiers Primary Impression: Headache Headache type: unspecified Headache chronicity pattern: acute headache Intractability: intractable Qualified Codes: R51 - Headache Additional Impressions: Weeks of gestation: unspecified Qualified Codes: Z34.90 - Encounter for supervision of normal , unspecified, unspecified trimester Urinary tract infection Urinary tract infection type: acute cystitis Hematuria presence: without hematuria Qualified Codes: N30.00 - Acute cystitis without hematuria Hypertension Hypertension type: unspecified Qualified Codes: I10 - Essential (primary) hypertension JOE CHEN DO Oct 17, 2018 23:45
--- NOTE | 2018-10-19 08:10 | EKG ---
[facility] [address] [place] [address] Test Date: 2018-10-17 Test Time: 21:51:50 Pat Name: MICHELLE RUIZ Department: Room: Gender: F Operations Trainer: : 1980 Requested By: JOE CHEN Order Number: [id number] Reading MD: Oracio Marroquin MD Measurements Intervals [place] Rate: 93 P: 42 [place]: 184 QRS: 31 QRSD: 88 T: 25 QT: 364 QTc: 455 Interpretive Statements SINUS RHYTHM Electronically Signed On 10-20-2018 6:58:04 AIRCRAFT ENGINE TECHNICIAN by Oracio Marroquin MD
== END 2018-10-17 23:59 | disposition home or self-care (01) ==
LOC: ER 20:21
DX: O23.10 Infections of bladder in pregnancy, unspecified trimester (principal); I10 Essential (primary) hypertension; R51 Headache; Z3A.00 Weeks of gestation of pregnancy not specified; O99.619 Diseases of the digestive system complicating pregnancy, unspecified trimester; K92.89 Other specified diseases of the digestive system; K21.9 Gastro-esophageal reflux disease without esophagitis; Z90.49 Acquired absence of other specified parts of digestive tract
CPT/HCPCS: 36415; 80053; 81001; 82553; 83735; 84484; 85025; 87086; 93005; 96374; 96375; 96376; 99284; J0696; J1100; J1200; J2405; J2765; J3490; J7030

== ENCOUNTER 2019-04-15 13:57 | Emergency (ER) | payer MEDICAID, OTHER ==
[~2019-04-15] VITALS: Ht 167.6 cm; Wt 122.5 kg
[~2019-04-15 13:57] MED LIST changes: +BUTA1TAB23 PO; +CEPH-264 PO; +LISI1TAB19 PO; -LISI1TAB5 PO; +ONDA4TAB12 PO
[2019-04-15] MEDS ORDERED: NAPROXEN 500 MG TABLET PO STA (15:49)
--- NOTE | 2019-04-15 15:53 | RAD ---
FOOT RIGHT 3V 04/15/2019 12:00 AM INDICATION: Pain from fall yesterday COMPARISON: None available. TECHNIQUE: 3 views the right foot are provided. FINDINGS: There is no acute fracture or dislocation. Bone mineralization is within normal limits. Joint spaces are maintained. Regional soft tissues are within normal limits. There is no soft tissue gas or osseous erosion. Posterior calcaneal enthesophyte noted. IMPRESSION: No acute fracture or dislocation. Specifically, no abnormalities identified along the lateral foot. Electronically signed by: Salome Ward MD (04/15/2019 3:50 PM) [facility]
[2019-04-15] MEDS ORDERED: HYDROcodone/APAP 5/325MG 1 TAB TABLET PO ONE (16:00)
--- NOTE | 2019-04-15 16:17 | PHYS DOC ---
Past Medical History Past Medical History: GERD, Hypertension Additional Past Medical Histor: Miscarriages, kong's palsy x 3, vertigo Past Surgical History: Cholecystectomy, , Tonsillectomy, Other Additional Past Surgical Histo: ADENOIDS, D&C Alcohol Use: None Drug Use: None Adult General Chief Complaint Chief Complaint: FOOT INJURY PAIN HPI HPI Patient is a 38 year old female with history of hypertension who presents to the ED today complaining of 7 out of 10 throbbing intermittent pain on top of the right foot that began yesterday while walking on uneven surface. Patient states the pain is worse on weight bearing. Denies anything specifically relieving the pain. Review of Systems Review of Systems Constitutional: Denies fever or chills [] Musculoskeletal: Reports right foot pain Integument: Denies rash or skin lesions [] Neurologic: Denies headache, focal weakness or sensory changes [] All other systems were reviewed and found to be within normal limits, except as documented in this note. Current Medications Current Medications Current Medications Medications (Trade) Dose Ordered Sig/Amanda Start Time Stop Time Status Last Admin Dose Admin Acetaminophen/ Hydrocodone Bitart (Lortab 5/325) 2 tab 1X ONCE 04/15/19 16:00 04/15/19 16:01 DC 04/15/19 15:56 2 TAB Naproxen (Naprosyn) 500 mg 1X STAT 04/15/19 15:49 04/15/19 15:50 DC 04/15/19 15:56 500 MG Allergies Allergies Allergies Coded Allergies Type Severity Reaction Last Updated Verified No Known Drug Allergies 11/14/17 No Physical Exam Physical Exam Constitutional: Well developed, well nourished, no acute distress, non-toxic appearance. [] Skin: Warm, dry, no erythema, no rash. [] Back: No tenderness, no CVA tenderness. [] Extremities: Right foot with no obvious deformity, no edema, no ecchymosis. Tenderness on palpation of the top of the right foot. Full range of motion to the right toes and foot. +2 right pedal pulse. Neurologic: Alert and oriented X 3, normal motor function, normal sensory function, no focal deficits noted. [] Psychologic: Affect normal, judgement normal, mood normal. [] Current Patient Data Vital Signs Vital Signs Date Time Temp Pulse Resp B/P (MAP) Pulse Ox O2 Delivery O2 Flow Rate FiO2 04/15/19 15:56 16 99 Room Air 04/15/19 14:39 98.3 90 163/97 (119) 98.3 EKG EKG [] Radiology/Procedures Radiology/Procedures []PROCEDURE: FOOT RIGHT 3V FOOT RIGHT 3V 04/15/2019 12:00 AM INDICATION: Pain from fall yesterday COMPARISON: None available. TECHNIQUE: 3 views the right foot are provided. FINDINGS: There is no acute fracture or dislocation. Bone mineralization is within normal limits. Joint spaces are maintained. Regional soft tissues are within normal limits. There is no soft tissue gas or osseous erosion. Posterior calcaneal enthesophyte noted. IMPRESSION: No acute fracture or dislocation. Specifically, no abnormalities identified along the lateral foot. Electronically signed by: Brittney Gatica MD (04/15/2019 3:50 PM) [facility] DICTATED and SIGNED BY: BRITTNEY GATICA MD DATE: 04/15/19 1550 Course & Med Decision Making Course & Med Decision Making Pertinent Labs and Imaging studies reviewed. (See chart for details) This is a 38-year-old female patient presenting to the ED with the right foot pain that began yesterday after stepping on uneven surface. Right foot x-rays interpreted by radiologist are negative for any acute findings. Discharged with Medrol Dosepak as and diclofenac. Ice elevation encouraged, follow-up with orthopedic. Dragon Disclaimer Dragon Disclaimer This electronic medical record was generated, in whole or in part, using a voice recognition dictation system. Departure Departure Impression: Primary Impression: Right foot sprain Disposition: HOME, SELF-CARE Condition: STABLE Referrals: REENA VARELA MD (PCP) TESSA NESBITT MD follow up in one week Patient Instructions: Foot Sprain-Brief Additional Instructions: You were evaluated in the emergency for right foot sprain. Your right foot x- rays are negative, try to ice and elevate the extremity. Follow-up with the provided specialist in 1-2 weeks. Scripts Methylprednisolone (MEDROL) 4 Mg Tab.ds.pk 1 PKG PO UD, #1 PKG Prov: MUTUNGADREAD EXHIBIT BUILDER 04/15/19 Diclofenac Potassium (DICLOFENAC POTASSIUM) 50 Mg Tablet 1 TAB PO BID, #20 TAB Prov: MUTUNGADREAD EXHIBIT BUILDER 04/15/19 Problem Qualifiers Primary Impression: Right foot sprain Encounter type: initial encounter Qualified Codes: S93.601A - Unspecified sprain of right foot, initial encounter DREAD ANGELES APRN Apr 15, 2019 16:17
[2019-04-15] MEDS ORDERED: METH4TAB2 PO (16:24)
[2019-04-15] MEDS ORDERED: DICL50TA2 PO (16:24)
== END 2019-04-15 16:36 | disposition home or self-care (01) ==
LOC: ER 13:57
DX: S93.691A Other sprain of right foot, initial encounter (principal); K21.9 Gastro-esophageal reflux disease without esophagitis; I10 Essential (primary) hypertension; Z90.49 Acquired absence of other specified parts of digestive tract; Z98.890 Other specified postprocedural states; Z90.89 Acquired absence of other organs; X50.1XXA Overexertion from prolonged static or awkward postures, initial encounter; Y93.01 Activity, walking, marching and hiking; Y92.89 Other specified places as the place of occurrence of the external cause; Y99.8 Other external cause status
CPT/HCPCS: 73630; 99284

== ENCOUNTER 2021-03-08 20:33 | Emergency (ER) | payer MEDICAID ==
[~2021-03-08] VITALS: Ht 167.6 cm; Wt 151.5 kg
[~2021-03-08 20:33] MED LIST changes: +DICL50TA2 PO; -LISI1TAB19 PO; +LISI1TAB37 PO; +METH4TAB2 PO; -NIFE30TA17 PO; +NIFE30TA95 PO; -OMEP20CA10 PO; +OMEP20CA16 PO
--- NOTE | 2021-03-08 21:22 | PHYS DOC ---
Past Medical History Past Medical History: GERD, Hypertension Additional Past Medical Histor: Miscarriages, kong's palsy x 3, vertigo Past Surgical History: Cholecystectomy, , Tonsillectomy, Tubal ligation, Other Additional Past Surgical Histo: ADENOIDS, D&C Smoking Status: Current Every Day Smoker Alcohol Use: Heavy Drug Use: None General Adult EDM: Chief Complaint: CHEST PAIN HPI: HPI: Patient is a 40 year old female past medical history of hypertension anemia GERD presents with chief complaint of chest pain. Patient chest pain has been ongoing x2 weeks. She states pain is located in her left chest that comes and goes. Patient states at onset she feels as if her heart is racing. Patient has associated shortness of breath denies any nausea vomiting diarrhea fever chills. Patient states she has had a cough with sputum production starting around the onset of chest pain. Patient states she has not been taking any of her blood pressure sure medications as previously prescribed which include labetalol and nifedipine. Review of Systems: Review of Systems: Constitutional: Denies fever or chills. [] Eyes: Denies change in visual acuity. [] HENT: Denies nasal congestion or sore throat. [] Respiratory: positive cough no shortness of breath. [] Cardiovascular: Denies chest pain or edema. [] GI: Denies abdominal pain, nausea, vomiting, bloody stools or diarrhea. [] : Denies dysuria. [] Musculoskeletal: Denies back pain or joint pain. [] Integument: Denies rash. [] Neurologic: Denies headache, focal weakness or sensory changes. [] Endocrine: Denies polyuria or polydipsia. [] Lymphatic: Denies swollen glands. [] Psychiatric: Denies depression or anxiety. [] Heart Score: C/O Chest Pain: Yes HEART Score for Chest Pain: HEART Score for Chest Pain Response (Comments) Value History Slighlty/Non-Suspicious 0 ECG Normal 0 Age < 45 0 Risk Factors 1 or 2 Risk Factors 1 Troponin < Normal Limit 0 Total 1 Risk Factors: Risk Factors: DM, Current or recent (<one month) smoker, HTN, HLP, family history of CAD, obesity. Risk Scores: Score 0 - 3: 2.5% MACE over next 6 weeks - Discharge Home Score 4 - 6: 20.3% MACE over next 6 weeks - Admit for Clinical Observation Score 7 - 10: 72.7% MACE over next 6 weeks - Early Invasive Strategies Allergies: Allergies: Allergies Coded Allergies Type Severity Reaction Last Updated Verified No Known Drug Allergies 11/14/17 No Physical Exam: PE: Constitutional: Well developed, well nourished, no acute distress, non-toxic appearance. [] HENT: Normocephalic, atraumatic, bilateral external ears normal, oropharynx moist, no oral exudates, nose normal. [] Eyes: PERRLA, EOMI, conjunctiva normal, no discharge. [] Neck: Normal range of motion, no tenderness, supple, no stridor. [] Cardiovascular:Heart rate regular rhythm, no murmur [] Lungs & Thorax: Bilateral breath sounds clear to auscultation [] Abdomen: Bowel sounds normal, soft, no tenderness, no masses, no pulsatile masses. [] Skin: Warm, dry, no erythema, no rash. [] Back: No tenderness, no CVA tenderness. [] Extremities: No tenderness, no cyanosis, no clubbing, ROM intact, no edema. [] Neurologic: Alert and oriented X 3, normal motor function, normal sensory function, no focal deficits noted. [] Psychologic: Affect normal, judgement normal, mood normal. [] Current Patient Data: Vital Signs: Vital Signs Date Time Temp Pulse Resp B/P (MAP) Pulse Ox O2 Delivery O2 Flow Rate FiO2 03/08/21 20:40 98.9 111 18 193/118 (119) 96 Room Air 98.9 EKG: EKG: [] Performed at 2050 Rate [address] elevation No ST depression No acute OR Radiology/Procedures: Radiology/Procedures: [] Impression: P chest. HISTORY: Chest pain Portable AP view was taken of the chest. Heart is upper normal in size. There is haziness in the lung bases from atelectasis or infiltrates. Upper lung zones are more clear. IMPRESSION: 1. Hazy basilar atelectasis or infiltrates. Electronically signed by: Stevie Jiménez MD (03/08/2021 9:41 PM) [facility] Course & Med Decision Making: Course & Med Decision Making Pertinent Labs and Imaging studies reviewed. (See chart for details) [] Patient was evaluated for chief complaint. Work-up consisted of laboratory analysis radiologic imaging and EKG. Results reviewed and discussed with patient. Treatment included Labetalol 20 mg IV push for high blood pressure. Radiologist impression of chest x-ray infiltrate versus atelectasis. Patient was discharged home with a refill of her blood pressure medications. Patient is requesting a refill of anxiety medications. Due to patient's cough with sputum production and x-ray findings will place patient on Zithromax. Dragon Disclaimer: Dragon Disclaimer: This electronic medical record was generated, in whole or in part, using a voice recognition dictation system. Departure Departure Impression: Primary Impression: Chest pain Additional Impressions: Cough Hypertension Disposition: HOME / SELF CARE / HOMELESS Condition: STABLE Referrals: NO PCP (PCP) Patient Instructions: Chest Pain (Nonspecific), Cough, Adult, Hypertension Scripts Alprazolam (XANAX) 0.5 Mg Tablet 0.5 MG PO PRN Q6HRS PRN for ANXIETY / AGITATION, #14 TAB 0 Refills Prov: ANTOINE PEARSON DO 03/08/21 Nifedipine (ADALAT CC) 60 Mg Tablet.er 1 TAB PO DAILY for 30 Days, #30 TAB 0 Refills Prov: ANTOINE PEARSON DO 03/08/21 Labetalol Hcl (LABETALOL HCL) 300 Mg Tablet 1 TAB PO DAILY, #180 TAB 3 Refills Prov: ANTOINE PEARSON DO 03/08/21 Azithromycin (ZITHROMAX) 250 Mg Tablet 1 PKG PO UD, #6 TAB Prov: ANTOINE PEARSON DO 03/08/21 ANTOINE PEARSON DO Mar 08, 2021 21:22
--- NOTE | 2021-03-08 21:43 | RAD ---
AP chest. HISTORY: Chest pain Portable AP view was taken of the chest. Heart is upper normal in size. There is haziness in the lung bases from atelectasis or infiltrates. Upper lung zones are more clear. IMPRESSION: 1. Hazy basilar atelectasis or infiltrates. Electronically signed by: Stevie Jiménez MD (03/08/2021 9:41 PM) [facility]
[2021-03-08 22:10] LABS: BASO % 0 % (0-3); EOS # 0.2 x10^3/uL (0.0-0.7); EOS % 2 % (0-3); HEMATOCRIT 24.9 % (36.0-47.0); HEMOGLOBIN 7.1 g/dL (12.0-15.5); LYMPH # 1.7 x10^3/uL (1.0-4.8); LYMPH % 17 % (24-48); MEAN CORPUSCULAR HEMOGLOBIN 15 pg (25-35); MEAN CORPUSCULAR HGB CONC 28 g/dL (31-37); MEAN CORPUSCULAR VOLUME 54 fL (79-100); MONO # 0.8 x10^3/uL (0.0-1.1); MONO % 8 % (0-9); NEUT # 7.2 x10^3/uL (1.8-7.7); NEUT % 73 % (31-73); PLATELET COUNT 311 x10^3/uL (140-400); RED BLOOD COUNT 4.62 x10^6/uL (3.50-5.40); WHITE BLOOD COUNT 9.9 x10^3/uL (4.0-11.0)
[2021-03-08] MEDS ORDERED: KETOROLAC 30 MG/ML VIAL. IVP ONE (22:15)
[2021-03-08 22:17] LABS: CALCIUM 8.6 mg/dL (8.5-10.1); CREATININE 0.7 mg/dL (0.6-1.0); GFR 111.6; POTASSIUM 4.2 mmol/L (3.5-5.1)
[2021-03-08 22:20] LABS: ALBUMIN/GLOBULIN RATIO 0.7 (1.0-1.7); TOTAL BILIRUBIN 0.3 mg/dL (0.2-1.0); TOTAL PROTEIN 7.2 g/dL (6.4-8.2)
[2021-03-08] MEDS ORDERED: LABETALOL 20 MG/4 ML DISP.SYRIN. IVP ONE (22:30)
[2021-03-08 22:40] LABS: HYPOCHROMIA MARKED; PLT ESTIMATE ADEQUATE (ADEQUATE)
[2021-03-08 22:41] LABS: ANISOCYTOSIS MOD; MICROCYTOSIS MARKED; POLYCHROMASIA SLIGHT
[2021-03-08 22:42] LABS: SPHEROCYTES OCC
[2021-03-08 22:43] LABS: OVALOCYTES FEW
[2021-03-08 23:31] VITALS: BP 176/102
[2021-03-08] MEDS ORDERED: ALPR0.5T PO (23:51)
[2021-03-08] MEDS ORDERED: LABE300T2 PO (23:51)
[2021-03-08] MEDS ORDERED: NIFE60TA41 PO (23:51)
[2021-03-08] MEDS ORDERED: AZIT250T PO (23:51)
--- NOTE | 2021-03-09 06:53 | EKG ---
[facility] [address] [place] [address] Test Date: 2021-03-08 Test Time: 20:51:08 Pat Name: MICHELLE RUIZ Department: Room: Gender: F Chaperone: : 1980 Requested By: ANTOINE PEARSON Order Number: [id number] Reading MD: Measurements Intervals [place] Rate: 104 P: 50 [place]: 158 QRS: 22 QRSD: 94 T: 62 QT: 340 QTc: 453 Interpretive Statements SINUS TACHYCARDIA LEFT ATRIAL ABNORMALITY ABNORMAL ECG RI6.01 No previous ECG available for comparison
== END 2021-03-08 23:58 | disposition home or self-care (01) ==
LOC: ER 20:33
DX: R07.89 Other chest pain (principal); R05 Cough; I10 Essential (primary) hypertension; K21.9 Gastro-esophageal reflux disease without esophagitis; F17.200 Nicotine dependence, unspecified, uncomplicated; F10.20 Alcohol dependence, uncomplicated; Y90.9 Presence of alcohol in blood, level not specified
CPT/HCPCS: 36415; 71045; 80053; 84484; 85025; 93005; 96374; 96375; 99285; J1885; J3490

== ENCOUNTER 2021-06-17 15:48 | Emergency (ER) | payer MEDICAID ==
[~2021-06-17] VITALS: Ht 165.1 cm; Wt 131.0 kg
[~2021-06-17 15:48] MED LIST changes: +ALPR0.5T PO; +AZIT250T PO; +LABE300T2 PO; +NIFE60TA41 PO
[2021-06-17] MEDS ORDERED: fentaNYL PF VIAL 100 MCG/2 ML VIAL IVP ONE ×2 (18:30→21:00)
[2021-06-17] MEDS ORDERED: methylPREDNISolone SOD SUCC PF 125 MG/2 ML VIAL. IV ONE (18:30)
[2021-06-17] MEDS: ALBUTEROL SULFATE 2.5 MG/3 ML NEBU. NEB ONE ×2 (18:30→20:35)
[2021-06-17] MEDS ORDERED: ASPIRIN CHEWABLE 81 MG TABLET. PO ONE (18:30)
--- NOTE | 2021-06-17 18:35 | PHYS DOC ---
Past Medical History Past Medical History: GERD, Hypertension Additional Past Medical Histor: Miscarriages, roberto's palsy x 3, vertigo Past Surgical History: Cholecystectomy, , Tonsillectomy, Tubal ligation, Other Additional Past Surgical Histo: ADENOIDS, D&C Smoking Status: Current Every Day Smoker Alcohol Use: Heavy Drug Use: None General Adult EDM: Chief Complaint: SHORTNESS OF BREATH HPI: HPI: Patient is a 40 year old female who presents with 2 days of cough, shortness of breath and now she is having rib and upper abdominal pain with coughing. Has not had Covid shot. Patient is a smoker, hypertension, GERD, A. fib, has miscarriages, Roberto's palsy, cholecystectomy, T&A, D&C, , tubal ligation. Rates her pain 8 out of 10 and states it is aching and sharp with movement. Review of Systems: Review of Systems: Constitutional: Denies fever or chills. [] Eyes: Denies change in visual acuity. [] HENT: Denies nasal congestion or sore throat. [] Respiratory: + cough or +shortness of breath. [] Cardiovascular: Denies chest pain or edema. [] GI: + Bilateral upper rib/abdominal pain, denies nausea, vomiting, bloody stools or diarrhea. + Lack of appetite [] : Denies dysuria. [] Musculoskeletal: Denies back pain or joint pain. [] Integument: Denies rash. [] Neurologic: + Intermittent headache, denies focal weakness or sensory changes. [] Endocrine: Denies polyuria or polydipsia. [] Lymphatic: Denies swollen glands. [] Psychiatric: Denies depression or anxiety. [] Heart Score: C/O Chest Pain: No HEART Score for Chest Pain: HEART Score for Chest Pain Response (Comments) Value History Slighlty/Non-Suspicious 0 ECG Normal 0 Age < 45 0 Risk Factors 1 or 2 Risk Factors 1 Troponin < Normal Limit 0 Total 1 Risk Factors: Risk Factors: DM, Current or recent (<one month) smoker, HTN, HLP, family history of CAD, obesity. Risk Scores: Score 0 - 3: 2.5% MACE over next 6 weeks - Discharge Home Score 4 - 6: 20.3% MACE over next 6 weeks - Admit for Clinical Observation Score 7 - 10: 72.7% MACE over next 6 weeks - Early Invasive Strategies Current Medications: Current Medications Medications (Trade) Dose Ordered Sig/Amanda Start Time Stop Time Status Last Admin Dose Admin Albuterol Sulfate (Ventolin Neb Soln) 2.5 mg 1X ONCE 06/17/21 18:30 06/17/21 18:31 UNV Aspirin (Aspirin Chewable) 324 mg 1X ONCE 06/17/21 18:30 06/17/21 18:31 UNV Fentanyl Citrate (Fentanyl 2ml Vial) 50 mcg 1X ONCE 06/17/21 18:30 06/17/21 18:31 UNV Methylprednisolone Sodium Succinate (SOLU-Medrol 125MG VIAL) 125 mg 1X ONCE 06/17/21 18:30 06/17/21 18:31 UNV Allergies: Allergies: Allergies Coded Allergies Type Severity Reaction Last Updated Verified No Known Drug Allergies 11/14/17 No Physical Exam: PE: Constitutional: Well developed, well nourished, no acute distress, non-toxic appearance. Morbidly obese [] HENT: Normocephalic, atraumatic, bilateral external ears normal, oropharynx moist, no oral exudates, nose normal. [] Eyes: PERRLA, EOMI, conjunctiva normal, no discharge. [] Neck: Normal range of motion, no tenderness, supple, no stridor. [] Cardiovascular:Heart rate regular rhythm, no murmur [] Lungs & Thorax: Bilateral upper breath sounds clear and lowers bilaterally are diminished but with expiratory wheezing on the left lower lobe to auscultation [] Abdomen: Bowel sounds normal, soft, no tenderness, no masses, no pulsatile masses. [] Skin: Warm, dry, no erythema, no rash. [] Back: No tenderness, no CVA tenderness. [] Extremities: No tenderness, no cyanosis, no clubbing, ROM intact, no edema. [] Neurologic: Alert and oriented X 3, normal motor function, normal sensory function, no focal deficits noted. [] Psychologic: Affect normal, judgement normal, mood normal. [] EKG: EK read by Dr. Bravo is sinus rhythm and no STEMI Radiology/Procedures: Radiology/Procedures: [] Impression: [facility] [address] [place] [address] IMAGING REPORT Signed PATIENT: MICHELLE RUIZ ACCOUNT: [id number] : 1980 LOCATION: ER AGE: 40 SEX: F EXAM STATUS: REG ER ORD. PHYSICIAN: INDER ELO APRN REASON: cough, soa PROCEDURE: PORTABLE CHEST 1V Single view chest dated 06/17/2021 7:14 PM: COMPARISON: 03/08/2021 Clinical Indication: Cough and shortness of breath. Findings: Single upright portable exam of the chest was performed. Heart and mediastinal contours are stable. Lungs are somewhat hypoinflated but otherwise clear. No consolidation or pleural effusion. No pneumothorax. IMPRESSION: No acute radiographic abnormality. Stable findings compared to 03/08/2021. Electronically signed by: Nabil Felder MD (06/17/2021 7:14 PM) [facility] [place] DICTATED and SIGNED BY: NABIL FELDER MD DATE: 06/17/21 [id number] 0 Course & Med Decision Making: Course & Med Decision Making Pertinent Labs and Imaging studies reviewed. (See chart for details) COVID-19 CRITERIA: The patient was evaluated during the global COVID-19 pandemic, and that diagnosis was suspected/considered upon their initial presentation. Their evaluation, treatment and testing was consistent with current guidelines for patients who present with complaints or symptoms that may be related to COVID-19. See HPI. Alert and oriented x4. Ambulatory steady gait. Speaks in full clear sentences. Skin pink warm and dry. Bilateral upper lungs are clear in bilateral lower diminished with the left lower lung having inspiratory expiratory wheezing. She is hypertensive she is taking none of her medications today because she has not eaten. Denies any current dizziness or headache at this time. Patient's hemoglobin is at a 7. She also has hypertensive emergency. Chest x- ray was normal. Rapid Covid is negative. She got a breathing treatment and Solu-Medrol. Patient is going to be admitted to the hospital for hypertensive emergency and low hemoglobin. She was given labetalol 20 mg IV in the ED. This only brought down her blood pressure slightly. Admitted to the hospitalist. Patient is leaving AMA. She states that she understands what is wrong with her and has been going on for a long time. She states she will just follow-up with her doctor. Patient understands that by leaving there is a chance of stroke, heart attack, disability and/or . Patient states understanding of this. [] Dragon Disclaimer: Dragon Disclaimer: This electronic medical record was generated, in whole or in part, using a voice recognition dictation system. COVID-19 Patient Risks: Age 65 or older: No Sign of co-morbidity: Yes Exp to person + for COVID: No Exp to PUI: No Travel from affected area: No Lower respiratory symptoms: Yes Fever: No Other: Yes (lack of appetite) PPE Use: Full PPE with N95 mask or PAPR: Yes Departure Departure Impression: Primary Impression: Hypertensive emergency Additional Impression: Low hemoglobin Disposition: LEFT AGAINST MEDICAL ADVICE Admitting Physician: HIMS Condition: STABLE Referrals: NABIL PENDLETON MD (PCP) INDER LEO APRN Jun 17, 2021 18:35
--- NOTE | 2021-06-17 18:54 | EKG ---
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
[2021-06-17 19:01] LABS: BILIRUBIN,URINE NEGATIVE (NEG); CLARITY,URINE CLEAR; COLOR,URINE YELLOW; NITRITE,URINE NEGATIVE (NEG); PH,URINE 8.5 (<5.0-8.0); PROTEIN,URINE 100 mg/dL (NEG-TRACE)
[2021-06-17 19:02] LABS: BASO # 0.1 x10^3/uL (0.0-0.2); BASO % 1 % (0-3); EOS # 0.3 x10^3/uL (0.0-0.7); EOS % 2 % (0-3); HEMATOCRIT 24.9 % (36.0-47.0); LYMPH % 17 % (24-48); MEAN CORPUSCULAR HEMOGLOBIN 15 pg (25-35); MEAN CORPUSCULAR HGB CONC 28 g/dL (31-37); MEAN CORPUSCULAR VOLUME 54 fL (79-100); MONO # 0.9 x10^3/uL (0.0-1.1); MONO % 8 % (0-9); NEUT # 8.2 x10^3/uL (1.8-7.7); NEUT % 72 % (31-73); PLATELET COUNT 328 x10^3/uL (140-400); RED BLOOD COUNT 4.63 x10^6/uL (3.50-5.40); WHITE BLOOD COUNT 11.3 x10^3/uL (4.0-11.0)
[2021-06-17 19:09] LABS: CALCIUM 8.3 mg/dL (8.5-10.1); CREATININE 0.6 mg/dL (0.6-1.0); GFR 133.3; POTASSIUM 3.3 mmol/L (3.5-5.1)
[2021-06-17 19:12] LABS: BACTERIA,URINE 0 /HPF (0-FEW); RBC,URINE 0 /HPF (0-2); WBC,URINE 0 /HPF (0-4)
[2021-06-17 19:15] LABS: ALBUMIN/GLOBULIN RATIO 0.6 (1.0-1.7); TOTAL BILIRUBIN 0.3 mg/dL (0.2-1.0); TOTAL PROTEIN 8.2 g/dL (6.4-8.2)
--- NOTE | 2021-06-17 19:17 | RAD ---
Single view chest dated 06/17/2021 7:14 PM: COMPARISON: 03/08/2021 Clinical Indication: Cough and shortness of breath. Findings: Single upright portable exam of the chest was performed. Heart and mediastinal contours are stable. L ungs are somewhat hypoinflated but otherwise clear. No consolidation or pleural effusion. No pneumoth orax. IMPRESSION: No acute radiographic abnormality. Stable findings compared to 03/08/2021. Electronically signed by: Nabil Felder MD (06/17/2021 7:14 PM) NICOLETTE
[2021-06-17] MEDS ORDERED: LABETALOL 20 MG/4 ML DISP.SYRIN. IVP ONE ×2 (19:30→20:30)
[2021-06-17 19:54] LABS: ANISOCYTOSIS MOD; HYPOCHROMIA MARKED; MICROCYTOSIS MARKED; PLT ESTIMATE ADEQUATE (ADEQUATE); POLYCHROMASIA SLIGHT; TARGET CELLS FEW
[2021-06-17 19:55] LABS: OVALOCYTES OCC; SCHISTOCYTES OCC
[2021-06-17 21:39] VITALS: BP 198/101
--- NOTE | 2021-06-18 16:12 | NUR ---
IP: Informed pt of negative covid test. Pt b verbalized understanding.
== END 2021-06-17 21:55 | disposition left against medical advice (07) ==
LOC: ER 15:48
DX: I16.1 Hypertensive emergency (principal); Z20.822 Contact with and (suspected) exposure to COVID-19; D64.9 Anemia, unspecified; K21.9 Gastro-esophageal reflux disease without esophagitis; I10 Essential (primary) hypertension; F17.200 Nicotine dependence, unspecified, uncomplicated
CPT/HCPCS: 36415; 71045; 80053; 81001; 83690; 83880; 84484; 85025; 86850; 86900; 86901; 87426; 93005; 94640; 96374; 96375; 96376; 99285; J2930; J3010; J3490; J7613; U0003; U0005

== ENCOUNTER 2021-08-30 22:00 | Emergency (ER) | payer MEDICAID ==
[~2021-08-30] VITALS: Ht 167.6 cm; Wt 128.0 kg
[2021-08-30 22:35] VITALS: BP 192/104
[2021-08-30] MEDS ORDERED: HYDR30CR61 TP (22:40)
--- NOTE | 2021-08-30 22:40 | PHYS DOC ---
Past Medical History Past Medical History: GERD, Hypertension Additional Past Medical Histor: Miscarriages, kong's palsy x 3, vertigo, "vit k def" Past Surgical History: Cholecystectomy, , Tonsillectomy, Tubal ligation, Other Additional Past Surgical Histo: ADENOIDS, D&C Smoking Status: Current Every Day Smoker Alcohol Use: Occasionally Drug Use: None General Adult EDM: Chief Complaint: HEMORRHOID PROBLEM HPI: HPI: Patient is a 41 year old FEMALE WHO presented to the ER today for recurrent hemorrhoid problem. Patient says she has hemorrhoid problems for several years. Patient said she had tried numerous medication but she keeps having recurrent hemorrhoid. Patient said for the last few weeks she has been more painful hemorrhoid, patient you [id number] medication cream but did not get any better so she came in here for evaluation. Patient denies any abdominal pain. Review of Systems: Review of Systems: Constitutional: Denies fever or chills. [] Eyes: Denies change in visual acuity. [] HENT: Denies nasal congestion or sore throat. [] Respiratory: Denies cough or shortness of breath. [] Cardiovascular: Denies chest pain or edema. [] GI: Denies abdominal pain, nausea, vomiting, bloody stools or diarrhea. Positive for painful rectal hemorrhoid : Denies dysuria. [] Musculoskeletal: Denies back pain or joint pain. [] Integument: Denies rash. [] Neurologic: Denies headache, focal weakness or sensory changes. [] Endocrine: Denies polyuria or polydipsia. [] Lymphatic: Denies swollen glands. [] Psychiatric: Denies depression or anxiety. [] Heart Score: C/O Chest Pain: N/A Risk Factors: Risk Factors: DM, Current or recent (<one month) smoker, HTN, HLP, family history of CAD, obesity. Risk Scores: Score 0 - 3: 2.5% MACE over next 6 weeks - Discharge Home Score 4 - 6: 20.3% MACE over next 6 weeks - Admit for Clinical Observation Score 7 - 10: 72.7% MACE over next 6 weeks - Early Invasive Strategies Allergies: Allergies: Allergies Coded Allergies Type Severity Reaction Last Updated Verified No Known Drug Allergies 08/02/21 No Physical Exam: PE: Constitutional: Well developed, well nourished, no acute distress, non-toxic appearance. Morbidly obese Cardiovascular:Heart rate regular rhythm, no murmur [] Lungs & Thorax: Bilateral breath sounds clear to auscultation [] Abdomen: Bowel sounds normal, soft, no tenderness, no masses, no pulsatile masses. There area 4 small nonthrombosed external hemorrhoids, no bleeding. Skin: Warm, dry, no erythema, no rash. [] Back: No tenderness, no CVA tenderness. [] Extremities: No tenderness, no cyanosis, no clubbing, ROM intact, no edema. [] Neurologic: Alert and oriented X 3, normal motor function, normal sensory function, no focal deficits noted. [] Psychologic: Affect normal, judgement normal, mood normal. [] EKG: EKG: [] Radiology/Procedures: Radiology/Procedures: [] Course & Med Decision Making: Course & Med Decision Making Pertinent Labs and Imaging studies reviewed. (See chart for details) Patient is a 41-year-old female who presents with recurrent hemorrhoid problem. Patient currently has 4 nonthrombosed small external hemorrhoids. Patient required definitive treatment at that time in the ER. Patient will need to follow-up with a general surgeon for outpatient evaluation and treatment Dragon Disclaimer: Dragon Disclaimer: This electronic medical record was generated, in whole or in part, using a voice recognition dictation system. Departure Departure Impression: Primary Impression: External hemorrhoid Disposition: HOME / SELF CARE / HOMELESS Condition: STABLE Referrals: ZEKE BHAT MD Please follow up with this general surgeon for definitive treatment of your hemorrhoid problem next week Patient Instructions: Hemorrhoids Additional Instructions: Thank you for visiting our Emergency Department. We appreciate you trusting us with your care. If any additional problems come up don't hesitate to return to visit us. Please follow up with your primary care provider so they can plan additional care if needed and know about the problem that you had. If symptoms worsen come back to the Emergency Department. Any concerning symptoms that start such as chest pain, shortness of air, weakness or numbness on one side of the body, running high fevers or any other concerning symptoms return to the ER. Scripts Hydrocortisone (ANUSOL-HC) 30 Gm Cream..g. 1 JOSEPH TP TID for 10 Days, #30 GM 0 Refills Prov: ALE RODRIGEZ DO 08/30/21 ALE RODRIGEZ DO Aug 30, 2021 22:40
== END 2021-08-30 23:15 | disposition home or self-care (01) ==
LOC: ER 22:00
DX: K64.4 Residual hemorrhoidal skin tags (principal); K21.9 Gastro-esophageal reflux disease without esophagitis; I10 Essential (primary) hypertension; F17.200 Nicotine dependence, unspecified, uncomplicated; Z90.49 Acquired absence of other specified parts of digestive tract
CPT/HCPCS: 99283

== ENCOUNTER → 2021-10-05 | Day surgery (SDC) | payer MEDICAID ==
[~2021-10-05] VITALS: Ht 167.6 cm; Wt 148.0 kg
[~2021-10-05] MED LIST changes: +FERR-36 PO; +HYDR30CR61 TP; +IV RINGERS,LACTATED 1000ML 1,000 ML IV SCH; +LIDOCAINE 2% PF 5 ML VIAL. ONE; +MAGN200T7 PO; +NIFE90TA PO; +PROPOFOL 10 MG/ML (20ML) VIAL. IV ONE; +TRIA1CAP3 PO
[2021-10-05 08:50] VITALS: BP 183/106
[2021-10-05 10:05] VITALS: BP 143/67
--- NOTE | 2021-10-05 15:45 | HP ---
DATE OF SERVICE: 10/05/2021 ADMIT DATE: 10/05/2021 UPDATED HISTORY AND PHYSICAL REASON: Anemia. REFERRING PHYSICIAN: Dr. Gaines. HISTORY OF PRESENT ILLNESS: A 41-year-old female whose past medical history is significant for hypertension as well as , cholecystectomy, tonsillectomy, and tubal ligation, was seen with ongoing issues with anemia with hemoglobin 7.4. She does have intermittent rectal bleeding, also has heavy menstrual periods. Denies a family history of colon polyps or colon cancer. Has had previous scopes done in 2017 which were unrevealing at that time except for gastritis. With continued issues, she requests additional evaluation. PAST MEDICAL HISTORY: Iron deficiency anemia and hypertension. ALLERGIES: None. MEDICATIONS: Includes Xanax, ferrous sulfate, labetalol, magnesium, Procardia, citalopram, and pantoprazole. FAMILY AND SOCIAL HISTORY: Significant for hypertension in multiple family members, COPD with her mother. PAST SURGICAL HISTORY: As stated. REVIEW OF SYSTEMS: Per records. PHYSICAL EXAMINATION: GENERAL: Reveals a well-developed female who is alert, cooperative, in no acute distress. VITAL SIGNS: Temperature 97.8, pulse 92, and respiratory rate is 20. LUNGS: Clear. CARDIOVASCULAR: Reveals an S1, S2, without S3, S4 or appreciable murmur. ABDOMEN: Reveals a soft abdomen, normal bowel sounds, without appreciable hepatosplenomegaly. Multiple surgical incisions. EXTREMITIES: Reveals no cyanosis, clubbing or edema. IMPRESSION: Iron deficiency anemia, etiology is to be determined. GI blood losses and SCREEN CLEANER blood losses are in the differential. Hemorrhoids and/or fibroids may be contributing. Therefore, recommend upper endoscopy and colonoscopy. Risks and benefits of procedure including risk of hemorrhage and perforation with operation have been discussed. The patient is willing to proceed. LEEANN/ONEAL STEWART: Hiren TID: [id number]
== END | disposition home or self-care (01) ==
LOC: SURG 08:31
PROVIDERS: ATTEND Internal Medicine Gastroenterology
DX: D50.9 Iron deficiency anemia, unspecified (principal); K92.1 Melena; K29.50 Unspecified chronic gastritis without bleeding; R58 Hemorrhage, not elsewhere classified; K64.8 Other hemorrhoids; K57.30 Diverticulosis of large intestine without perforation or abscess without bleeding; K63.89 Other specified diseases of intestine; K31.89 Other diseases of stomach and duodenum; I10 Essential (primary) hypertension; I48.91 Unspecified atrial fibrillation; E78.00 Pure hypercholesterolemia, unspecified; E66.9 Obesity, unspecified; M19.90 Unspecified osteoarthritis, unspecified site; F41.9 Anxiety disorder, unspecified; F32.9 Major depressive disorder, single episode, unspecified; G47.30 Sleep apnea, unspecified; F17.210 Nicotine dependence, cigarettes, uncomplicated; Z79.899 Other long term (current) drug therapy; Z98.890 Other specified postprocedural states; Z72.89 Other problems related to lifestyle; Z82.49 Family history of ischemic heart disease and other diseases of the circulatory system
CPT/HCPCS: 43235; 45378; 81025; J2704

== ENCOUNTER 2021-10-16 19:00 | Emergency (ER) | payer MEDICAID ==
[~2021-10-16] VITALS: Ht 167.6 cm; Wt 127.3 kg
[~2021-10-16 19:00] MED LIST changes: -IV RINGERS,LACTATED 1000ML 1,000 ML IV SCH; -LIDOCAINE 2% PF 5 ML VIAL. ONE; -PROPOFOL 10 MG/ML (20ML) VIAL. IV ONE
[2021-10-16 19:51] VITALS: BP 201/116
[2021-10-16] MEDS ORDERED: AMOX500C PO (20:08)
--- NOTE | 2021-10-16 20:08 | PHYS DOC ---
Past Medical History Past Medical History: GERD, Hypertension Additional Past Medical Histor: Miscarriages, kong's palsy x 3, vertigo, "vit k def", HEMORRHOIDS Past Surgical History: , Tonsillectomy Additional Past Surgical Histo: ADENOIDS, D&C Smoking Status: Current Every Day Smoker Alcohol Use: Occasionally Drug Use: None General Adult EDM: Chief Complaint: SORE THROAT HPI: HPI: Patient is a 41-year-old female who presents to the emergency department complaining of sore throat and left ear discomfort for the past month. Patient denies recent fever or chills, denies cough, nasal or chest congestion, denies chest pains, nausea, vomiting, diarrhea. Patient denies rashes to her skin, denies other people living at home with same symptoms as she. Patient denies other physical concerns or physical complaints. Patient denies allergies to medications, states she has a history of hypertension, takes nifedipine and lisinopril however forgot to take her morning medications. Review of Systems: Review of Systems: 14 body systems of review of systems have been reviewed. See HPI for pertinent positives and negative responses, otherwise all other systems are negative, nonpertinent or noncontributory. Constitutional: Negative except as outlined in HPI above. Skin: Negative except as outlined in HPI above. Eyes: Negative except as outlined in HPI above. HENT: Negative except as outlined in HPI above. Respiratory: Negative except as outlined in HPI above. Cardiovascular: Negative except as outlined in HPI above. GI: Negative except as outlined in HPI above. : Negative except as outlined in HPI above. Musculoskeletal: Negative except as outlined in HPI above. Integument: Negative except as outlined in HPI above. Neurologic: Negative except as outlined in HPI above. Endocrine: Negative except as outlined in HPI above. Lymphatic: Negative except as outlined in HPI above. Psychiatric: Negative except as outlined in HPI above. Heart Score: C/O Chest Pain: No Risk Factors: Risk Factors: DM, Current or recent (<one month) smoker, HTN, HLP, family h istory of CAD, obesity. Risk Scores: Score 0 - 3: 2.5% MACE over next 6 weeks - Discharge Home Score 4 - 6: 20.3% MACE over next 6 weeks - Admit for Clinical Observation Score 7 - 10: 72.7% MACE over next 6 weeks - Early Invasive Strategies Allergies: Allergies: Allergies Coded Allergies Type Severity Reaction Last Updated Verified No Known Drug Allergies 10/05/21 No Physical Exam: PE: Constitutional: Well developed, well nourished, no acute distress, non-toxic appearance. 41-year-old female in no apparent distress. HENT: Normocephalic, atraumatic. Oropharynx erythematous, right-sided tonsillar erythema with cobblestoning and exudative drainage, left-sided tonsillar erythema with cobblestoning without exudative drainage, there is no uvular edema or deviation, there is no laryngeal edema present, patient is speaking with normal voice tones, there is no drooling, no trismus, right tympanic membrane intact within normal limits, left TM intact, is not bulging does show air-fluid bubbles, there is no drainage from the external auditory canals. Bilateral submental lymphadenopathy appreciated with palpation, no other lymphadenopathy of the head or neck appreciated Eyes: Conjunctiva normal, no discharge. Neck: Normal range of motion, no stridor. Cardiovascular: No cyanosis appreciated, distal cap refill less than 2 seconds. Lungs & Thorax: Patient is in no respiratory distress, no audible adventitious lung sounds appreciated. Abdomen: Nontender, no abnormalities noted. Skin: Warm, dry, no erythema, no rash. Back: No tenderness, no deformities. Extremities: No tenderness, no cyanosis, no clubbing, ROM intact, no edema. Neurologic: Alert and oriented X 3, normal motor function, normal sensory function, no focal deficits noted. Psychologic: Affect normal, judgement normal, mood normal. Current Patient Data: Vital Signs: Vital Signs Date Time Temp Pulse Resp B/P (MAP) Pulse Ox O2 Delivery O2 Flow Rate FiO2 10/16/21 19:51 108 15 201/116 (144) 96 Room Air 10/16/21 19:11 98.6 98.6 EKG: EKG: [] Radiology/Procedures: Radiology/Procedures: [] Course & Med Decision Making: Course & Med Decision Making Pertinent Labs and Imaging studies reviewed. (See chart for details) 41-year-old female, vital signs reviewed, resents emerged from concerning sore throat with ear discomfort for the past month. Physical examination concerning for strep pharyngitis, patient's Centor score supports prophylactic antibiotic treatment, will start amoxicillin regimen, will give IM Decadron, ibuprofen for throat discomfort prior to discharge. Discussed findings with patient, recommended with patient to take blood pressure medicines as soon as she arrives back home, patient reports she does forgot to take her medicine this morning and she will take soon as she gets home. Discussed with patient follow-up with Dr. Gaines this week for ongoing symptoms, return to ER precautions and concerns were reviewed, patient gave verbal understanding of and is amenable to ED discharge planning. Discussed with the patient all findings and diagnostic testing as well as the need to follow-up with their primary care provider for further evaluation and tr eatment or return to the ED if any new or worsening symptoms. Strict return precautions were also discussed at length, the patient voiced understanding and agreement with the discharge planning. The patient was nontoxic in appearance, in no apparent distress, and hemodynamically stable at the time of disposition. Dragon Disclaimer: Dragon Disclaimer: This electronic medical record was generated, in whole or in part, using a voice recognition dictation system. Departure Departure Impression: Primary Impression: Sore throat Additional Impression: Left ear pain Disposition: HOME / SELF CARE / HOMELESS Condition: GOOD Referrals: JOE GAINES MD (PCP) Patient Instructions: Viral and Bacterial Pharyngitis Additional Instructions: You were seen today in the emergency department for sore throat left ear pain. I am treating you with an antibiotic, you will take twice a day for the next 10 days. Please take as directed till complete. As we discussed he may continue to use [id number] ibuprofen suspension as this seems to help well with throat discomfort, anesthetic throat sprays [id number], you may use Chloraseptic or any generic type, the red-colored 1 seems to work best, please keep in the refrigerator as this tends to help with soothing relief for throat discomfort. As we discussed, please make an appointment to see Dr. Gaines soon for ongoing discomfort and symptoms. Thank you for visiting our Emergency Department. It was a pleasure taking care of you today in the emergency department and we appreciate you trusting us with your care. If any additional problems come up don't hesitate to return to visit us. Please follow up with your primary care provider so they can plan additional care if needed and know about the problem that you had. If symptoms worsen come back to the Emergency Department. Any concerning symptoms that start such as chest pain, shortness of air, weakness or numbness on one side of the body, running high fevers or any other concerning symptoms return to the ER. Scripts Amoxicillin (AMOXICILLIN) 500 Mg Capsule 1 CAP PO BID for throat infection, #20 CAP 0 Refills Prov: JOE CHOPRA APRN 10/16/21 JOE CHOPRA APRN Oct 16, 2021 20:08
[2021-10-16] MEDS ORDERED: IBUPROFEN 100 MG/5 ML ORAL.SUSP. PO ONE (20:15)
[2021-10-16] MEDS ORDERED: AMOXICILLIN 250 MG CAPSULE. PO ONE (20:15)
[2021-10-16] MEDS ORDERED: DEXAMETHASONE SOD PHOS 20 MG/5 ML VIAL. IM ONE (20:15)
== END 2021-10-16 20:22 | disposition home or self-care (01) ==
LOC: ER 19:00
DX: J02.9 Acute pharyngitis, unspecified (principal); H92.02 Otalgia, left ear; K21.9 Gastro-esophageal reflux disease without esophagitis; I10 Essential (primary) hypertension; F17.200 Nicotine dependence, unspecified, uncomplicated
CPT/HCPCS: 96372; 99283; J1100